=== PATIENT | male | born 1965 | race Caucasian/White ===

== ENCOUNTER → 2017-12-24 | Outpatient (CLI) | payer OTHER ==
[~2017-12-24] MED LIST: ASPI-232 PO; LXP/10 PO; PROP80CA7 PO
[2017-12-24 09:42] LABS: BLOOD UREA NITROGEN 18 mg/dl (7-18); CARBON DIOXIDE 29 mmol/L (21-32); CREATININE 1.05 mg/dl (0.60-1.40); GLUCOSE 105 mg/dl (70-99); SODIUM 140 mmol/L (136-145)
[2017-12-24 09:51] LABS: CHOLESTEROL 256 mg/dl (0-200); LDL CHOLESTEROL CALCULATED 166 mg/dl
[2017-12-24 10:44] LABS: HEMOGLOBIN A1C 5.7 % (4.5-5.6)
== END | disposition home or self-care (01) ==
LOC: C.LAB1850 08:26
PROVIDERS: ATTEND Internal Medicine Geriatric Medicine
DX: Z00.00 Encounter for general adult medical examination without abnormal findings (principal); E78.5 Hyperlipidemia, unspecified; R03.0 Elevated blood-pressure reading, without diagnosis of hypertension; R73.9 Hyperglycemia, unspecified

== ENCOUNTER 2018-02-12 19:09 | Emergency (ER) | payer OTHER ==
[~2018-02-12] VITALS: Ht 172.7 cm; Wt 89.7 kg
[~2018-02-12 19:09] MED LIST changes: +PROP80CA29 PO; -PROP80CA7 PO
[2018-02-12 19:12] VITALS: TEMP 36.7; Ht 172.7 cm; Wt 89.7 kg
[2018-02-12] MEDS ORDERED: IBUPROFEN 600 MG TAB PO STA (19:31)
[2018-02-12] MEDS ORDERED: LIDOCAINE 1% BUFFERED INJ 5 ML VIAL INFIL ONE (19:45)
[2018-02-12 19:56] VITALS: BP 107/73
--- NOTE | 2018-02-12 20:09 | DIAGNOSTIC IMAGING REPORT ---
L HAND MIN 3 VIEWS ROUTINE HISTORY: 52 years-old Male LEFT, LAC TO 2ND, 3RD AND 4TH FINGERS FROM CIRCULAR SAW acute laceration of the left hand COMPARISON: None available TECHNIQUE: 3 views of the left hand FINDINGS: Mild radiocarpal and first carpometacarpal osteoarthritis. No acute fracture or dislocation. There is mild soft tissue swelling about the second digit with a 2 mm linear metallic density foreign body within the lateral soft tissues adjacent to the second proximal phalangeal head. IMPRESSION: 1. No acute fracture or dislocation. 2. Mild soft tissue swelling about the second digit with a 2 mm linear metallic density foreign body within the lateral soft tissues adjacent to the second proximal phalangeal head. The above report was generated using voice recognition software. It may contain grammatical, syntax or spelling errors. Electronically signed by: Shun Leonardo M.D. 02/12/2018 8:08 PM Dictated Date/Time: 02/12/2018 8:07 PM
--- NOTE | 2018-02-12 21:39 | EMERGENCY ROOM VISIT NOTE ---
ED Visit Note First contact with patient: 19:15 CHIEF COMPLAINT:. Left second, third and fourth finger lacerations from a circular saw one hour ago. HISTORY OF PRESENT ILLNESS: Patient is a [id number] 52-year-old male who presents emergency department for evaluation of a laceration to his left second, third and fourth fingers. He was using a circular saw, when he hit a nail, and the saw jumped, striking his left hand. He applied pressure with a napkin and bleeding stopped. He did rinse the area with water and applied a gauze dressing. He notes a throbbing pain primarily in his third finger that he rates a 3/10. His tetanus is up-to-date. REVIEW OF SYSTEMS: Review of systems as per HPI. All other systems reviewed were negative. 10 systems reviewed. PMH: Electronic medical records are reviewed and summarized as above/below. See Problem List. SOCIAL HISTORY: Patient lives at home with his family. Non-smoker. PHYSICAL EXAM: Vital Signs: Reviewed Nurse's notes. Examination of the patient' s left hand notes superficial soft tissue avulsions to the fingerpad of the left second finger and the left fourth finger. He has 2 separate lacerations noted on the palmar aspect of the third finger, one measuring roughly 2 cm, the other 3 cm. The edges gape apart with traction. There is no foreign material in the wound and it looks clean. There is no bleeding. No deep structures such as tendons or nerves are seen in the base of the wound. Extension of the finger is full, flexion of the finger is full and strong when isolated at the MCP, the PIP and the DIP joints. EMERGENCY DEPARTMENT COURSE: Patient was medicated with ibuprofen for discomfort. X-rays of the left hand were obtained and no fracture or bony abnormality were noted. The patient's hand was cleansed thoroughly with saline and baby soap. Using sterile technique, saline and Betadine cleansing, and 1% lidocaine anesthesia, a digital block was performed on the third finger to facilitate wound repair. The second and fourth fingers were cleansed thoroughly , and there were no repairable lacerations noted there, small soft tissue avulsions were excised. When adequate anesthesia was obtained, the third finger was scrubbed thoroughly with Betadine and irrigated copiously with normal saline solution. Wound was repaired using 5-0 Vicryl sutures. Patient tolerated the procedure well. He declined a finger splint. Wound care measures were discussed. There is no evidence for fracture or tendinous injury. Medication reconciliation: I attest that I have personally reviewed the patient' s current medication list. Blood pressure screening: Patient was found to have a slightly elevated blood pressure due to circumstances. I do not believe that the patient requires hypertension monitoring. L HAND MIN 3 VIEWS ROUTINE HISTORY: 52 years-old Male LEFT, LAC TO 2ND, 3RD AND 4TH FINGERS FROM CIRCULAR SAW acute laceration of the left hand COMPARISON: None available TECHNIQUE: 3 views of the left hand FINDINGS: Mild radiocarpal and first carpometacarpal osteoarthritis. No acute fracture or dislocation. There is mild soft tissue swelling about the second digit with a 2 mm linear metallic density foreign body within the lateral soft tissues adjacent to the second proximal phalangeal head. IMPRESSION: 1. No acute fracture or dislocation. 2. Mild soft tissue swelling about the second digit with a 2 mm linear metallic density foreign body within the lateral soft tissues adjacent to the second proximal phalangeal head. Problem List Medical Problems: (1) Dyslipidemia Status: Chronic (2) Hypertension Status: Chronic Current/Historical Medications Scheduled Aspirin (Aspir-81), 1 TAB PO DAILY Escitalopram Oxalate (Lexapro), 10 MG PO QAM Propranolol Hcl (Inderal La), 80 MG PO QAM Allergies Coded Allergies: Penicillins (Verified Allergy, Unknown, SICK, 08/28/15) Vital Signs Date Time Temp Pulse Resp B/P (MAP) Pulse Ox O2 Delivery O2 Flow Rate FiO2 02/12/18 21:50 67 95 02/12/18 19:56 60 16 107/73 98 Room Air 02/12/18 19:12 36.7 77 18 148/98 95 Room Air Medications Administered Medications (Trade) Dose Ordered Sig/Manuelito Route Start Time Stop Time Status Last Admin Dose Admin Lidocaine HCl (Buffered Lidocaine 1% Inj) 20 ml ONE ONCE INFIL 02/12/18 19:45 02/12/18 19:46 DC 02/12/18 19:55 5 ML Ibuprofen (Motrin Tab) 600 mg NOW STAT PO 02/12/18 19:31 02/12/18 19:33 DC 02/12/18 19:55 600 MG Departure Information Impression Primary Impression: Finger laceration Referrals Greg Ibanez M.D. (PCP) Patient Instructions My [facility] Additional Instructions Keep wounds clean and dry. Do not allow any crusting or dried blood to accumulate on sutures. Clean gently with mild soap and water daily. Use an antibiotic ointment for 3-4 days, then let wound dry. Suture removal in 12-14 days. Return sooner for any signs of infection (increasing redness, swelling, drainage). Ice and elevate for swelling and pain. Ibuprofen 600 mg and Tylenol 1000 mg every 6 hrs for pain. Problem Qualifiers Primary Impression: Finger laceration Encounter type: initial encounter Finger: middle finger Damage to nail status: without damage Foreign body presence: without foreign body Laterality: left Qualified Codes: S61.213A - Laceration without foreign body of left middle finger without damage to nail, initial encounter
[2018-02-12 21:50] VITALS: PULSE 67; O2SAT 95
== END 2018-02-12 21:46 | disposition home or self-care (01) ==
LOC: C.EDB 19:10 → C.EDD 21:46
DX: S61.213A Laceration without foreign body of left middle finger without damage to nail, initial encounter (principal); W31.2XXA Contact with powered woodworking and forming machines, initial encounter; E78.5 Hyperlipidemia, unspecified; I10 Essential (primary) hypertension; Z79.82 Long term (current) use of aspirin; Z88.0 Allergy status to penicillin